=== PATIENT | male | born 1935 | race Asian ===

== ENCOUNTER 2018-02-11 20:36 | Emergency (ER) | payer MEDICARE, OTHER ==
[~2018-02-11] VITALS: Ht 172.7 cm; Wt 74.8 kg
--- NOTE | 2018-02-11 20:41 | Emergency Room Report ---
History of Present Illness General Chief Complaint: Head Injury Source: EMS Present Illness HPI This is an 82-year-old male brought in by EMS after reported fall. The patient reportedly fell down several steps. Patient had the no reported loss of consciousness. Patient was reportedly at his baseline mental status afterward. Patient was unable to stand up after the fall. The patient had prior history of dementia. The patient is not on any anticoagulation per EMS. Fall was unwitnessed and patient was reportedly found down after approximately 20 minutes. The patient is [place] speaking.The patient complained of a headache after the fall. Allergies: Coded Allergies: No Known Allergies (Unverified , 02/11/18) Patient History Past Medical History: none Reviewed Nursing Documentation: PMH: Agreed; PSxH: Agreed Nursing Documentation-PMH Hx Hypertension: Yes Review of Systems All Other Systems: limited - mental status Physical Exam Vital Signs Date Time Temp Pulse Resp B/P (MAP) Pulse Ox O2 Delivery O2 Flow Rate FiO2 02/11/18 20:33 98.0 98 16 173/76 100 Room Air 98.1 Sp02 EP Interpretation: reviewed, normal General Appearance: normal inspection, alert, no apparent distress, GCS 15 Head: normocephalic, other - occipital scalp laceration Eyes: normal eye exam, PERRL, EOMI, lids + conjunctiva normal, no hyphema, no racoon eyes ENT: normal ENT inspection, TMs + canals normal, oropharynx normal, no kovacs signs Neck: trach midline, no bony tend, full range of motion without pain Respiratory: effort normal, no retractions, clear to auscultation, chest symmetrical, palpation of chest normal, speaking in full sentences Cardiovascular: regular rate, rhythm, no JVD Cardiovascular #2: 2+ radial (R), 2+ radial (L), 2+ dorsalis pedis (R), 2+ dorsalis pedis (L) Gastrointestinal: normal inspection, non-tender, non-distended, no rebound/ guarding, normal bowel sounds Genitourinary: normal inspection Musculoskeletal: normal ROM, non-tender, back normal Skin: no lacerations, normal palpation, other - occipital scalp laceration without active bleeding Lymphatic: normal inspection Neurologic: normal inspection, CN II-XII intact, oriented x3, sensory intact, motor strength/tone normal, normal speech Psychiatric: normal inspection, memory normal, mood normal, no suicidal/ homicidal ideation Procedures Critical Care Time Critical Care Time Patient had a critical medical condition which untreated could potentially result in life or limb threatening injury. Total critical care time excluding procedures approximately 35 minutes. Medical Decision Making Diagnostic Impression: Primary Impression: Acute head injury Additional Impressions: Intracranial hemorrhage Lumbar compression fracture Occipital scalp laceration ER Course Patient presented for headache. Differential diagnoses included but was not limited to skull fracture, subarachnoid hemorrhage, meningitis, aneurysm, mass lesion, intracranial hemorrhage.CT imaging of the head showed multiple areas of intracranial hemorrhage. The patient was discussed with the transfer center for [facility] for transfer for higher level of care. A CT imaging of the lumbar spine read by radiology showed a likely acute the L4 compression fracture. Patient was transferred via ALS transport.Patient was discussed with Meena from [facility] for neurointensivist. patient was dscussed with Dr. Cristobal for trauma surgery for higher level of care Labs Test 02/11/18 21:20 White Blood Count 12.6 K/UL (4.8-10.8) Red Blood Count 3.98 M/UL (4.70-6.10) Hemoglobin 13.5 G/DL (14.2-18.0) Hematocrit 38.8 % (42.0-52.0) Mean Corpuscular Volume 98 FL (80-99) Mean Corpuscular Hemoglobin 33.8 PG (27.0-31.0) Mean Corpuscular Hemoglobin Concent 34.7 G/DL (32.0-36.0) Red Cell Distribution Width 12.1 % (11.6-14.8) Platelet Count 171 K/UL (150-450) Mean Platelet Volume 8.1 FL (6.5-10.1) Neutrophils (%) (Auto) 77.4 % (45.0-75.0) Lymphocytes (%) (Auto) 15.5 % (20.0-45.0) Monocytes (%) (Auto) 5.9 % (1.0-10.0) Eosinophils (%) (Auto) 0.4 % (0.0-3.0) Basophils (%) (Auto) 0.9 % (0.0-2.0) Prothrombin Time 9.5 SEC (9.30-11.50) Prothromb Time International Ratio 0.9 (0.9-1.1) Activated Partial Thromboplast Time 25 SEC (23-33) Last Vital Signs Date Time Temp Pulse Resp B/P (MAP) Pulse Ox O2 Delivery O2 Flow Rate FiO2 02/11/18 20:33 98.0 98 16 173/76 100 Room Air 98.1 Status: unchanged Disposition: XFER SHT-TRM HOSP Condition: Critical Eddi Nguyen MD Feb 11, 2018 20:41
[2018-02-11] MEDS ORDERED: Sodium Chloride 500ML 500 ML IV ONE (20:45)
[2018-02-11] MEDS ORDERED: Isovue-300 100ml vial INJ PRN (20:45)
[2018-02-11 21:00] VITALS: BP 166/83
[2018-02-11] MEDS ORDERED: levETIRAcetam 1,000mg/NS100ml 100 ML IVPB ONE (21:15)
[2018-02-11] MEDS ORDERED: Tetanus/Diptheria/Pertussis Vaccine 0.5ml Syr IM ONE (21:30)
[2018-02-11 21:42] LABS: BASOPHILS % (AUTO) 0.9 % (0.0-2.0); EOSINOPHILS % (AUTO) 0.4 % (0.0-3.0); HEMATOCRIT 38.8 % (42.0-52.0); HEMOGLOBIN 13.5 G/DL (14.2-18.0); LYMPHOCYTES % (AUTO) 15.5 % (20.0-45.0); MEAN CORPUSCULAR VOLUME 98 FL (80-99); MONOCYTES % (AUTO) 5.9 % (1.0-10.0); NEUTROPHILS % (AUTO) 77.4 % (45.0-75.0); PLATELET COUNT 171 K/UL (150-450); RED BLOOD COUNT 3.98 M/UL (4.70-6.10); RED CELL DISTRIBUTION WIDTH 12.1 % (11.6-14.8); WHITE BLOOD COUNT 12.6 K/UL (4.8-10.8)
[2018-02-11 21:51] LABS: INR 0.9 (0.9-1.1)
[2018-02-11 22:00] VITALS: BP 180/83
--- NOTE | 2018-02-12 09:51 | Diagnostic Imaging Report ---
Indication: Abdominal pain Technique: Spiral acquisitions obtained through the abdomen and pelvis. No oral contrast utilized, per emergency room physician request No IV contrast utilized, per referring physician request.. Multiplanar reconstructions were generated. Total dose length product 702.34 mGycm. CTDIvol(s) 13.21 mGy. Dose reduction achieved using automated exposure control Comparison: None Findings: The appendix is normal. No evidence of diverticulosis or diverticulitis. No small bowel distention. No free or loculated intraperitoneal air or fluid. The distal esophagus, stomach, duodenum are all unremarkable. Lack of IV contrast limits assessment of the solid organs. The common bile duct is mildly ectatic, measuring up to 8 mm in diameter. The gallbladder, liver, pancreas, spleen, adrenals are all unremarkable. The left kidney demonstrates a subcentimeter exophytic low-attenuation lesion which is too small to characterize. Is also demonstrates a subcentimeter high low-attenuation lesion which is too small to characterize. There is bilateral perinephric fat stranding and mild renal atrophy There is nonspecific bilateral perinephric fat stranding. No retroperitoneal or mesenteric mass or adenopathy. No pelvic mass or adenopathy. There is a left hip prosthesis. This throws off streak artifact which could obscure pathology. There is a vertebra plana wedge/burst compression fracture deformity of the L1 vertebral body. There is evidence of a univentricular vertebral augmentation procedure for this. There is also slight wedge compression fracture deformity of the L2 vertebral body and a superior endplate compression fracture deformity of the L4 vertebral body. There are some fracture lines in this which could indicate acuity. There are degenerative changes of the lumbar spine. There is a partially healed fracture of the left 10th rib. There are acute or subacute fractures of the anterolateral right sixth and seventh ribs. There is an acute with old fracture deformity at the sacrococcygeal junction The included lung bases demonstrate posterior dependent atelectatic changes on the left as well as some bronchiectasis and bronchial wall thickening. There is pleural fluid on the left, with some rim thickening which could indicate loculation. There is pericardial thickening. There are mitral annular calcifications. Impression: Age-indeterminate but possibly acute superior endplate L4 vertebral body compression fracture. Age indeterminate L2 vertebral body compression fracture. Consider MRI for better characterization if this is clinically relevant Fractures, likely acute, the anterolateral right sixth and seventh ribs. Multiple old fractures, as described Evidence of prior L1 vertebral augmentation procedure for vertebral body fracture No definite acute solid organ trauma. Note that assessment is limited in the absence of IV contrast, however Small left pleural effusion. Surrounding thickening suggests loculation Pericardial thickening versus fluid Posterior dependent atelectatic changes on the left lung Subcentimeter left renal lesions, too small to characterize, most likely benign simple cysts. No further follow-up necessary Mild renal atrophy Nonspecific bilateral perinephric fat stranding This agrees with the preliminary interpretation provided overnight by [facility] teleradiology service. The CT scanner at [facility] is accredited by the [employer] and the scans are performed using protocols designed to limit radiation exposure to as low as reasonably achievable to attain images of sufficient resolution adequate for diagnostic evaluation.
--- NOTE | 2018-02-12 11:11 | Diagnostic Imaging Report ---
Indication: Pain, status post fall Technique: Spiral acquisitions obtained through the cervical spine. No IV contrast utilized. Multiplanar reconstructions were generated. Total dose length product 1713.11 mGycm. CTDIvol(s) 70.38,12.12 mGy. Dose reduction achieved using automated exposure control. Comparison: none Findings: Bony alignment is normal. No prevertebral soft tissue swelling. Vertebral body heights are preserved. No acute fractures. No dislocations. There is marked degenerative narrowing of the anterior atlantoaxial joint. There is degenerative disc narrowing at C3-4. There is minimal bilateral neural foraminal stenosis. No significant disc bulge or protrusion or spinal stenosis. There is mild bilateral facet arthrosis At C4-5, the disc space is preserved. Estimated hypertrophy results in mild degenerative narrowing of the right neural foramen. There is mild bilateral facet arthrosis At C5-6, there is mild to moderate degenerative disc narrowing. No significant disc bulge or protrusion. There is mild left and moderate right neural foraminal stenosis. There is mild bilateral facet arthrosis At the remaining disc levels, no significant disc bulge or protrusion, spinal stenosis, or neural foraminal stenosis. There is a stent in the right common and internal carotid artery. Impression: No acute bony trauma Multilevel degenerative changes, as detailed on a level by level basis above Right carotid stent incidentally noted The CT scanner at [facility] is accredited by the [employer] and the scans are performed using protocols designed to limit radiation exposure to as low as reasonably achievable to attain images of sufficient resolution adequate for diagnostic evaluation.
--- NOTE | 2018-02-12 11:27 | Diagnostic Imaging Report ---
Indications: Status post fall, laceration on back of head, head pain Technique: Spiral acquisitions obtained through the brain. Angled axial and coronal 5 x 5 mm slices were reconstructed. Total dose length product 1713.11 mGycm. CTDI vol(s) 70.38,12.12 mGy. Dose reduction achieved using automated exposure control Comparison: None. Findings: There is a right frontal hematoma that appears to be intraparenchymal, although could conceivably be extra-axial within the adjacent sulcus. This measures 4.2 x 1.6 x 2.8 cm in diameter. This results in some local mass effect. There is some surrounding edema. A small amount of subarachnoid blood is seen within the peripheral CSF space projecting both posteriorly and anteriorly. A small amount of blood along the falx to the right of the falx may be either subdural or subarachnoid. Small focus of subarachnoid blood is seen anterior to the left frontal lobe. There is an intraparenchymal hemorrhage within the anterior left temporal lobe, which measures 2.5 x 2.4 x 1.7 cm. This results in some local mass effect. There is some surrounding edema. There is some adjacent subarachnoid and possibly subdural blood in the middle fossa. A small amount of subarachnoid blood also projects into the sylvian fissure. Small focus of subarachnoid blood is seen in the anterior right middle fossa. A thin low attenuation collection is seen along the right convexity, measuring 2 to 3 mm thick, slightly higher in attenuation than CSF. There is an area of encephalomalacia involving the posterior right frontal lobe, consistent with old infarct. Old lacunar infarcts are seen in the right basal ganglia and a single old lacunar infarct in the left basal ganglia. No intraventricular hemorrhage. There is age-related enlargement of the ventricles and extra-axial CSF spaces. There is extensive periventricular deep white matter low-attenuation, consistent with chronic ischemic change. Some encephalomalacia is seen in the posterior parasagittal right parietal lobe. There is a large right high parietal scalp hematoma. The sinuses are clear. The orbits are unremarkable. Impression: Large right frontal parenchymal hematoma/contusion, as described, with associated extension into the adjacent subarachnoid space. Mild local mass effect but no significant midline shift Large left temporal parenchymal hematoma/contusion with associated adjacent subarachnoid hemorrhage. Associated subdural blood in the middle fossa and subarachnoid blood in the sylvian fissure Other foci of subarachnoid blood, presumably posttraumatic, are seen at the anterior right temporal tip and anterior to the left frontal lobe. Right parasagittal parafalcine hematoma, likely subdural Right parietal scalp hematoma. 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 2 to 3 mm thick right convexity subdural collection, likely subacute or old subdural hematoma. This was not described on the preliminary report The CT scanner at [facility] is accredited by the [employer] and the scans are performed using protocols designed to limit radiation exposure to as low as reasonably achievable to attain images of sufficient resolution adequate for diagnostic evaluation.
--- NOTE | 2018-02-12 13:07 | Cardiology Report ---
APPROVED REPORT EKG Measurement Heart [id number] Sinus tachycardia Otherwise normal ECG
== END 2018-02-11 21:53 | disposition short-term general hospital (02) ==
LOC: EDBD 20:36 → EMR 21:00
DX: S09.90XA Unspecified injury of head, initial encounter (principal); W10.9XXA Fall (on) (from) unspecified stairs and steps, initial encounter; Y92.9 Unspecified place or not applicable; F03.90 Unspecified dementia, unspecified severity, without behavioral disturbance, psychotic disturbance, mood disturbance, and anxiety; I10 Essential (primary) hypertension; I62.1 Nontraumatic extradural hemorrhage; S32.009A Unspecified fracture of unspecified lumbar vertebra, initial encounter for closed fracture; S01.01XA Laceration without foreign body of scalp, initial encounter; I60.9 Nontraumatic subarachnoid hemorrhage, unspecified
CPT/HCPCS: 36415; 70450; 72125; 74176; 82962; 85025; 85610; 85730; 90471; 90715; 93005; 99291; J1953